=== PATIENT | female | born 1955 | race Caucasian/White ===

== ENCOUNTER → 2016-11-16 | Outpatient (CLI) | payer MEDICARE | LOC: CT 07:41 | DX: D61.818 Other pancytopenia (principal); C65.9 Malignant neoplasm of unspecified renal pelvis; R53.81 Other malaise; E53.8 Deficiency of other specified B group vitamins; D46.21 Refractory anemia with excess of blasts 1; N28.89 Other specified disorders of kidney and ureter; R59.0 Localized enlarged lymph nodes; I77.89 Other specified disorders of arteries and arterioles | CPT/HCPCS: 74160; Q9965 ==

== ENCOUNTER → 2016-12-01 | Outpatient (CLI) | payer MEDICARE | LOC: OPSV 11:30 → MRI 13:00 | DX: C65.9 Malignant neoplasm of unspecified renal pelvis (principal); R42 Dizziness and giddiness; D61.818 Other pancytopenia; R53.81 Other malaise; E53.8 Deficiency of other specified B group vitamins; E86.0 Dehydration; D46.21 Refractory anemia with excess of blasts 1; R90.89 Other abnormal findings on diagnostic imaging of central nervous system | CPT/HCPCS: 36415; 70553; 82565; 84520; 96360; 96361; A9577; J7030 ==

== ENCOUNTER → 2021-05-26 | Outpatient (CLI) | payer MEDICARE ==
[~2021-05-26] MED LIST: AMLODIPINE BESYL5 MG PO; COMBIVENT RESPIM4 GM INH; EUTHYROX100 MCG PO; HYDRALAZINE HCL50 MG PO; LIPITOR40 MG PO; LOPRESSOR50 MG PO; MEDROL4 MG PO; OMEPRAZOLE40 MG PO; OMNICEF 300 MG300 MG PO; SPIRIVA HANDIH18 MCG INH; SYMBICORT 16010.2 GM INH; TESSALON PERLE100 MG PO; ZITHROMAX250 MG PO; ZOCOR 40 MG TAB40 MG PO
== END ==
LOC: KOH-I 14:22
DX: R05.4 Cough syncope (principal); R07.2 Precordial pain; R60.0 Localized edema; I11.9 Hypertensive heart disease without heart failure; E78.5 Hyperlipidemia, unspecified; I73.9 Peripheral vascular disease, unspecified
CPT/HCPCS: 93970

== ENCOUNTER → 2022-01-08 | Outpatient (CLI) | payer MEDICARE ==
[~2022-01-08] VITALS: Ht 167.6 cm; Wt 59.9 kg
[2022-01-09 10:14] LABS: ALPHA-1-ANTITRYPSIN, SERUM 117 mg/dL (101-187); IMMUNOGLOBULIN G, QN, SERUM 3375 mg/dL (586-1602)
[2022-01-09 14:11] LABS: ACTIN (SMOOTH MUSCLE) ANTIBODY 19 Units (0-19); LIVER-KIDNEY MICROSOMAL AB 1.1 Units (0.0-20.0); MITOCHONDRIAL (M2) ANTIBODY <20.0 Units (0.0-20.0)
== END | disposition home or self-care (01) ==
LOC: OPSV 09:53
PROVIDERS: Internal Medicine Gastroenterology
PROC: 0W9G3ZZ Drainage of Peritoneal Cavity, Percutaneous Approach (ICD-10-PCS; principal; 2022-01-08)
PROC: BW40ZZZ Ultrasonography of Abdomen (ICD-10-PCS; 2022-01-08)
DX: K74.60 Unspecified cirrhosis of liver (principal); R18.8 Other ascites
CPT/HCPCS: 80048; 80076; 82103; 82728; 82784; 83516; 83540; 83550; 86038; 86376; 96365; C1729; P9047

== ENCOUNTER → 2022-01-29 | Outpatient (CLI) | payer MEDICARE | END | disposition home or self-care (01) | LOC: OPSV 09:47 | PROC: 0W9G3ZZ Drainage of Peritoneal Cavity, Percutaneous Approach (ICD-10-PCS; principal; 2022-01-29) | DX: K74.60 Unspecified cirrhosis of liver (principal); R18.8 Other ascites ==